=== PATIENT | male | born 1955 | race Caucasian/White ===

== ENCOUNTER 2016-06-14 12:53 | Emergency (ER) | payer OTHER ==
[2016-06-14 13:03] VITALS: TEMP 97.5; O2SAT 93
[2016-06-14 13:46] LABS: % IMMATURE GRANULYOCYTES 0.3 % (0.0-1.1); ABSOLUTE IMMATURE GRANULOCYTES 0.03 10^3/uL (0.00-0.10); ADD DIFF? NO; ADD MORPH? NO; ADD SCAN? NO; ATYPICAL LYMPHOCYTE FLAG 20 (0-99); FRAGMENT RBC FLAG 0 (0-99); HEMATOCRIT 45.7 % (40.0-51.0); HEMOGLOBIN 15.8 g/dL (13.7-17.5); LEFT SHIFT FLG 0 (0-99); LIPEMIA HEMOLYSIS FLAG 90 (0-99); MEAN CELL HEMOGLOBIN 30.7 pg (27.9-34.1); MEAN CELL HEMOGLOBIN CONCENTR. 34.6 g/dL (32.4-36.7); MEAN CELL VOLUME 88.9 fL (81.5-99.8); PLATELET CLUMPS FLAG 0 (0-99); PLATELET COUNT 184 10^3/uL (150-400); RED BLOOD CELL COUNT 5.14 10^6/uL (4.40-6.38)
--- NOTE | 2016-06-14 13:53 | EDPHY ---
H & P Time Seen by Provider: 06/14/16 13:24 HPI/ROS: CHIEF COMPLAINT: Rectal bleeding HISTORY OF PRESENT ILLNESS: Patient presents with 2 episodes of bright red blood in the toilet bowl with a bowel movement. Yesterday he had 4 bowel movements without blood that was a bit more than usual for him. Today at 8:00 a.m. and then at 11:00 a.m. he had stool with surrounding some bright red blood. No melena and no maroon stool. No vomiting and no hematemesis. Last week he had a little bit of left lower quadrant abdominal pain but not currently. REVIEW OF SYSTEMS: Eye: no change in vision ENT: no sore throat Cardiac: no chest pain or syncope Pulmonary: no cough or SOB Abdomen: HPI Musculoskeletal: no back pain Skin: no rash or bruising Neuro: no headache Constitutional: no fever : no urinary symptoms A comprehensive 10 point review of systems is otherwise negative aside from elements mentioned in the history of present illness. PAST MEDICAL HISTORY: Cholecystectomy and pancreatitis Social history: Nonsmoker General Appearance: Alert and conversant, cooperative. Eyes: No scleral icterus. ENT, Mouth: Normal mucous membranes. Respiratory: Normal respiratory effort, breath sounds equal, lungs are clear to auscultation. Cardiovascular: Regular rate and rhythm. Gastrointestinal: Abdomen is soft and non tender. Rectal exam with anoscopy shows internal hemorrhoid which is inflamed, no bleeding proximal to the tip of the anoscope. Neurological: Alert and oriented x3. Normally conversant. Face symmetric, normal movement and sensation in all extremities. Skin: Warm and dry, no rashes. No bruising or petechiae. Musculoskeletal: No peripheral edema and no joint swelling. Psychiatric: Not agitated. Emergency Department course/MDM: Presentation consistent with internal hemorrhoid without evidence of upper or lower GI bleed. Hematocrit normal. [place] [facility], referral back to PCP or gastroenterology with recommendation for scope in the next month to confirm diagnosis. Smoking Status: Never smoked Constitutional: Initial Vital Signs Temperature (C) 36.4 C 06/14/16 13:00 Heart Rate 87 06/14/16 13:00 Respiratory Rate 17 06/14/16 13:00 Blood Pressure 97/73 L 06/14/16 13:00 O2 Sat (%) 93 06/14/16 13:00 O2 Delivery Mode Room Air Allergies/Adverse Reactions: tetanus toxoid, adsorbed Allergy (Verified 06/14/16 13:00) Home Medications: Medication Instructions Recorded Hydrocortisone Acetate [Anucort-Hc] 25 mg RC Q12 PRN #5 supp.rect 06/14/16 [place] 3 1,000 mg Softgel 06/14/16 Vitamin D3 06/14/16 Medical Decision Making - Data Points Laboratory Results: Laboratory Results 06/14/16 13:33 06/14/16 13:33 WBC 10.37 10^3/uL H 10^3/uL (3.80-9.50) RBC 5.14 10^6/uL 10^6/uL (4.40-6.38) Hgb 15.8 g/dL g/dL (13.7-17.5) Hct 45.7 % % (40.0-51.0) MCV 88.9 fL fL (81.5-99.8) MCH 30.7 pg pg (27.9-34.1) MCHC 34.6 g/dL g/dL (32.4-36.7) RDW 13.0 % % (11.5-15.2) Plt Count 184 10^3/uL 10^3/uL (150-400) MPV 11.0 fL fL (8.7-11.7) Neut % (Auto) 65.8 % % (39.3-74.2) Lymph % (Auto) 25.3 % % (15.0-45.0) [place] % (Auto) 7.5 % % (4.5-13.0) Eos % (Auto) 0.6 % % (0.6-7.6) Baso % (Auto) 0.5 % % (0.3-1.7) Nucleat RBC Rel Count 0.0 % % (0.0-0.2) Absolute Neuts (auto) 6.83 10^3/uL H 10^3/uL (1.70-6.50) Absolute Lymphs (auto) 2.62 10^3/uL 10^3/uL (1.00-3.00) Absolute Monos (auto) 0.78 10^3/uL 10^3/uL (0.30-0.80) Absolute Eos (auto) 0.06 10^3/uL 10^3/uL (0.03-0.40) Absolute Basos (auto) 0.05 10^3/uL 10^3/uL (0.02-0.10) Absolute Nucleated RBC 0.00 10^3/uL 10^3/uL (0-0.01) Immature Gran % 0.3 % % (0.0-1.1) Immature Gran # 0.03 10^3/uL 10^3/uL (0.00-0.10) Departure - Departure Disposition: Home, Routine, Self-Care Clinical Impression: Internal hemorrhoid, bleeding Condition: Good Instructions: Hemorrhoids (ED) Additional Instructions: Anal suppositories if needed for continued symptoms. Please return for worsening pain or increased bleeding. Should follow up with your primary care doctor or the referral senior etl developer for colonoscopy or sigmoidoscopy in the next month to exclude other problems. Referrals: CHARITY JAIMES [Primary Care Provider] - As per Instructions Lavell Qureshi MD [Medical Doctor] - As per Instructions Prescriptions: Hydrocortisone Acetate [Anucort-Hc] 25 mg RC Q12 PRN #5 supp.rect PRN Reason: rectal bleeding/hemorrhoids
[2016-06-14 14:08] VITALS: BP 129/97; PULSE 82; RESP 16
== END 2016-06-14 14:08 | disposition home or self-care (01) ==
DX: K64.8 Other hemorrhoids (principal)